=== PATIENT | female | born 1995 | race Asian ===

== ENCOUNTER 2019-01-22 18:14 | Emergency (ER) | payer OTHER ==
[~2019-01-22] VITALS: Ht 172.7 cm; Wt 83.2 kg
[2019-01-22 18:29] VITALS: BP 130/70
[2019-01-22] MEDS ORDERED: LIDOCAINE-MPF 1%, 5ML ONE (18:37)
--- NOTE | 2019-01-22 18:50 | NUR ---
PT ON CENTRAL OFFICE REPAIRER GURNEY. I&D SET UP COMPLETE AND IS AT BEDSIDE.
[2019-01-22] MEDS ORDERED: LIDOCAINE-MPF 1%, 5ML INFIL ONE (19:00)
[2019-01-22] MEDS ORDERED: IBUPROFEN 200 MG TABLET ONE (19:59)
[2019-01-22] MEDS ORDERED: IBUPROFEN 600 MG TABLET PO ONE (20:00)
[2019-01-22] MEDS ORDERED: IBUPROFEN 200 MG TABLET PO ONE (20:00)
== END 2019-01-22 20:06 | disposition home or self-care (01) ==
LOC: ED 20:00
DX: N75.1 Abscess of Bartholin's gland (principal)
CPT/HCPCS: 56420; 99283